=== PATIENT | male | born 1960 | race African-American/Black ===

== ENCOUNTER → 2017-12-10 | Outpatient (CLI) | payer OTHER ==
--- NOTE | 2017-12-10 17:54 | Diagnostic Imaging Report ---
Exam: Lumbar spine 2 views History: Back pain Comparison: None. Findings: No fracture or malalignment. Scattered degenerative endplate change with narrowing most prominent at L3-L4. No abnormal soft tissue calcification or soft tissue defect. Impression: No acute osseous abnormality Mild lumbar spondylosis most prominent at L3-L4. Signed by: Dr. Khoa Farah M.D. on 12/10/2017 5:51 PM
== END ==
LOC: RAD 12-06 16:12
PROVIDERS: ATTEND Family Medicine
DX: M54.5 Low back pain (principal); G89.29 Other chronic pain
CPT/HCPCS: 72100